=== PATIENT | female | born 1940 | race Caucasian/White ===

== ENCOUNTER 2024-03-24 06:56 | Day surgery (SDC) | payer MEDICARE, BC ==
[2024-03-22 10:38] VITALS: BMI 27.4
[~2024-03-24 06:56] MED LIST: ALPRAZolam 0.25 MG TAB PO PRN; ALPRAZolam 0.5 MG TAB PO PRN; ASPIRIN 325 MG TAB PO STA; NITROGLYCERIN SL TABS 0.4 MG TAB SUBLINGUAL PRN
[2024-03-24 07:35] VITALS: RESP 18; TEMP 97.8
[2024-03-24] MEDS: SODIUM CHLORIDE 0.9% 1,000 ML IV ONE (07:35)
[2024-03-24] MEDS: SODIUM CHLORIDE 0.9% 1,000 ML in EMPTY BAG 1 BAG IV SCH (07:35)
[2024-03-24 07:45] LABS: Anisocytosis Slight; Basophils # (A) 0.2 k/uL (0-0.2); Basophils % (A) 1 %; Eosinophils # (A) 0.5 k/uL (0-0.7); Eosinophils % (A) 3 %; HCT 53.4 % (34.0-46.0); HGB 16.7 gm/dL (11.4-16.0); Hypochromasia Slight; Lymphocytes # (A) 3.3 k/uL (1.0-4.8); Lymphocytes % (A) 22 %; MCH 27.5 pg (25.0-35.0); MCHC 31.4 g/dL (31.0-37.0); MCV 87.5 fL (80.0-100.0); Monocytes # (A) 0.9 k/uL (0-1.0); Monocytes % (A) 6 %; Neutrophils % (A) 66 %; RDW 16.6 % (11.5-15.5)
[2024-03-24] MEDS ORDERED: LIDOCAINE 1% INJ 10MG/ML (20 ML MDV) ONE (07:58)
[2024-03-24] MEDS ORDERED: VERAPAMIL 2.5 MG/ML 2 ML AMP ONE (07:58)
[2024-03-24] MEDS ORDERED: HEPARIN SODIUM 1,000 UN/ML (10ML VL) ONE (07:58)
[2024-03-24] MEDS ORDERED: fentaNYL (PF) 50 MCG/ML 2 ML AMP ONE (07:59)
[2024-03-24 08:16] LABS: African American GFR (CKD) 72 (>60 ml/min/1.73 sqM); Anion Gap 8 mmol/L; Blood Urea Nitrogen 24 mg/dL (7-17); Calcium 9.2 mg/dL (8.4-10.2); Carbon Dioxide 22 mmol/L (22-30); Chloride 110 mmol/L (98-107); Glucose 129 mg/dL (74-99); Non-African American GFR(CKD) 62 (>60 ml/min/1.73 sqM); Sodium 140 mmol/L (137-145)
[2024-03-24] MEDS: MIDAZOLAM 2 MG/2 ML VIAL IVP ONE (08:39)
[2024-03-24] MEDS: LIDOCAINE 1% INJ 10MG/ML (20 ML MDV) SQ ONE (08:43)
[2024-03-24] MEDS: VERAPAMIL SYRINGE (5 MG/10 ML) INTRAARTER ONE (08:45)
[2024-03-24] MEDS: HEPARIN SODIUM 1,000 UN/ML (10ML VL) IV ONE (08:47)
[2024-03-24] MEDS: IOPAMIDOL-370 200ML BTL INJ ONE (08:53)
[2024-03-24] MEDS ORDERED: RX INFO: IV CONTRAST WAS GIVEN 1 EACH MISC MISCELLANE PRN ×2 (08:57→09:02)
[2024-03-24] MEDS ORDERED: SODIUM CHLORIDE 0.9% 1,000 ML IV SCH ×2 (09:00→09:15)
--- NOTE | 2024-03-24 09:05 | P.PCN ---
Date of Procedure: 03/24/24 Description of Procedure: CARDIAC CATHETERIZATION PERFORMING PHYSICIAN: Ankush Xie MD, RPVI PROCEDURE PERFORMED: 1. Selective right and left coronary angiogram 2. Left heart catheterization 3. Ultrasound-guided access of the right radial artery INDICATION: Cardiomyopathy COMPLICATION: None APPROACH: Right radial artery LEVEL OF SEDATION: Moderate with a sedation length of 12 minutes PROCEDURE DESCRIPTION: After obtaining an informed consent, the patient was brought to cardiac laboratory animal caretaker. Local anesthesia was performed using lidocaine subcutaneously. The right radial artery was cannulated using Seldinger technique, the guidewire passed easily, following that we advanced a 5-[place] sheath dilator assembly, the wire and dilator were removed and sheath was flushed. Following that, 2 mg of verapamil along with 5000 unit heparin were given. Selective right and left coronary angiogram using a 6-[place] JR4 and JL 3.5 catheters. Following that we did left heart catheterization using 6-[place] pigtail catheter. The procedure was completed there was no complication. SELECTIVE CORONARY ANGIOGRAM: The right coronary artery: Large-caliber vessel and a dominant vessel and it is angiographically normal Left main: Is normal The left circumflex: Large-caliber vessel nondominant vessel and angiographically normal and gives rise into an OM branch which seems to be normal The left anterior descending artery: Large-caliber vessel. Is normal with gives rise into a large diagonal branch which also appears to be normal HEMODYNAMICS: The LVEDP was 8 mmHg with no significant gradient was identified across aortic valve CONCLUSION: 1. Normal coronary angiogram 2. Normal left-sided filling pressure POSTPROCEDURE MANAGEMENT: Medical treatment
[2024-03-24] MEDS: METOPROLOL SUCCINATE (ER) 100 MG TAB.ER.24H PO STA (10:02)
[2024-03-24] MEDS: LOSARTAN 25 MG TAB PO STA (10:02)
[2024-03-24] MEDS: DIGOXIN 125 MCG TAB PO SCH (10:02)
[2024-03-24 11:07] VITALS: BP 157/72; PULSE 70
== END 2024-03-24 11:57 | disposition home or self-care (01) ==
LOC: CATHCVL 06:56
PROVIDERS: ATTEND Internal Medicine Interventional Cardiology
DX: I42.9 Cardiomyopathy, unspecified (principal)
CPT/HCPCS: 93458; 80048; 85025; C1769; C1894; J2250; J2001; J1644; Q9967